=== PATIENT | female | born 1940 | race Caucasian/White ===

== ENCOUNTER 2019-07-11 13:37 | Day surgery (SDC) | payer MEDICARE ==
[~2019-07-11] VITALS: Ht 177.8 cm; Wt 75.3 kg
[2019-07-11 14:13] VITALS: BP 178/96
== END 2019-07-11 18:35 | disposition home or self-care (01) ==
LOC: OR 13:37
PROVIDERS: ATTEND Podiatrist Foot & Ankle Surgery
DX: M20.12 Hallux valgus (acquired), left foot (principal); M19.072 Primary osteoarthritis, left ankle and foot; M25.775 Osteophyte, left foot; M35.7 Hypermobility syndrome; I25.2 Old myocardial infarction; I10 Essential (primary) hypertension; Z79.82 Long term (current) use of aspirin; Z79.899 Other long term (current) drug therapy; Z87.891 Personal history of nicotine dependence; Z86.73 Personal history of transient ischemic attack (TIA), and cerebral infarction without residual deficits; Z88.0 Allergy status to penicillin; Z95.5 Presence of coronary angioplasty implant and graft
CPT/HCPCS: 28297; 28308; 64450; 73620; C1713; C1776; J0171; J0690; J1100; J2250; J2405; J2704; J2765; J3010; J7120; 76000